=== PATIENT | female | born 1970 | race Caucasian/White ===

== ENCOUNTER 2024-03-19 12:39 | Emergency (ER) | payer BC, SELFPAY ==
[2024-03-19 12:54] VITALS: BP 137/76; PULSE 80; RESP 19; TEMP 36.8; O2SAT 95; BMI 31.4
--- NOTE | 2024-03-19 12:57 | XR_ITS ---
Examination: CT brain head without contrast. 2-D sagittal coronal reconstructions Date and time of exam:March 19, 2024 1307 hours INDICATIONS: Dizziness episodes with blurred vision today CTDI: vol (mGy):54.8 DLP: (mGycm):1089 Technique: Multiple CT axial sections of the brain have been obtained, 5 mm slice thickness. Contrast has not been administered. 2-D sagittal, coronal reconstructions have been obtained Low dose protocols were performed. One or more of the following dose reduction techniques were used; automated exposure control, adjustment of the mA and/or KV according to patient size, use of iterative reconstruction technique. Findings: No significant ventricular enlargement. Intra-axial or extra-axial hemorrhage density is not seen. No mass effect or midline shift Basal cisterns are not remarkable. Fourth ventricle is midline. Cranial vault intact. Impression: Negative for acute hemorrhage, mass effect or midline shift Advise clinical correlation and follow-up accordingly
--- NOTE | 2024-03-19 12:57 | PD.EDRME ---
Rapid Medical Screening Exam RME Arrival date/time: 03/19/24 12:39 54-year-old female with no known medical history presents to the emergency room with a chief complaint of dizziness lightheadedness and headache that has been going on for the last week but has progressively gotten worse the last 2 days. I have greeted and performed a focused initial assessment of this patient. A comprehensive ED assessment and evaluation of the patient, analysis of all test results, and completion of the medical decision making process will be conducted by additional ED providers. Chief Complaint: Shortness of Breath/Dyspnea Time Seen by Provider: 03/19/24 12:52 Vital signs reviewed by provider: Yes
[2024-03-19 13:54] LABS: Collection Type, Urine Clean Catch; WBC,Urine 0 /hpf (0-5)
[2024-03-19 13:56] LABS: Basophils % (Auto) 0 % (0-2.5); Eosinophils # (Auto) 0.3 Thou/mm3 (0.0-0.5); Eosinophils % (Auto) 4 % (0-10); Hematocrit 40.8 % (36.0-46.0); Hemoglobin 13.9 g/dL (12.0-16.0); Immature Granulocytes % (Auto) 0 % (0-0); Immature Granulocytes Auto 0.02 Thou/mm3 (0.00-0.00); Lymphocytes # (Auto) 2.6 Thou/mm3 (1.0-4.8); Lymphocytes % (Auto) 38 % (10-50); Mean Corpuscular HGB Conc 34.1 g/dl (31.0-37.0); Mean Corpuscular Hemoglobin 30.2 pg (25.0-35.0); Mean Corpuscular Volume 89 fL (80-100); Monocytes # (Auto) 0.7 Thou/mm3 (0.0-0.8); Monocytes % (Auto) 10 % (0-12); Neutrophils # (Auto) 3.3 Thou/mm3 (1.8-7.7); Neutrophils % (Auto) 48 % (37-80); Nucleated Red Blood Cell % 0 /100 WBC (0); Platelet Count 300 Thou/mm3 (140-440); RDW Standard Deviation 37.7 fL (36.4-46.3); White Blood Count 6.9 Thou/mm3 (3.6-11.0)
[2024-03-19] MEDS: MECLIZINE HCL 25 MG TABLET PO (13:57)
[2024-03-19 14:01] LABS: Bacteria,Urine Rare; Bilirubin,Urine Negative (Negative); Blood,Urine Negative (Negative); Clarity,Urine Clear (Clear/Hazy); Color,Urine Lt-Yellow (Lt Yel-Yel); Glucose, Urine Negative (Negative); Ketones,Urine Negative (Negative); Leukocyte Esterase,Urine Negative (Negative); Nitrite,Urine Negative (Negative); PH,Urine 6.5 (5.0-7.0); Protein,Urine Negative (Neg - Trace); RBC,Urine < 1 /hpf (0-3); Specific Gravity,Urine 1.006 (1.001-1.035); Squamous Epithelial Cell,Urine 1 /hpf (0-5); Urobilinogen,Urine Negative mg/dL (0.0-1.0)
[2024-03-19 14:30] LABS: Alanine Aminotransferase 52 U/L (10-49); Albumin/Globulin Ratio 1.8 (1.2-2.2); Alkaline Phosphatase 65 U/L (46-116); Anion Gap 9 (7-16); Aspartate Amino Transferase 35 U/L (0-34); BUN/Creatinine Ratio 15 Ratio (12-20); Bilirubin,Total 0.6 mg/dL (0.3-1.2); Blood Urea Nitrogen 17 mg/dL (9-23); Calcium 9.9 mg/dL (8.3-10.6); Calcium (Corrected) 9.9 mg/dL (8.5-10.1); Carbon Dioxide 29.5 mMol/L (20.0-31.0); Chloride 98 mMol/L (98-107); Creatinine (Component) 1.1 mg/dL (0.6-1.3); Estimated Creatinine Clearance 73.2 mL/min (>60); Globulin 2.8 gm/dL (2.3-3.5); Glucose 102 mg/dL (74-106); Osmolality,Calculated 273 (275-295); Potassium 4.3 mMol/L (3.4-5.1); Sodium 136 mMol/L (136-145); Total Protein 7.8 gm/dL (5.7-8.2); eGFR > 60 See Note
[2024-03-19 14:42] LABS: Troponin I < 0.002 ng/mL (0.0-0.045)
[2024-03-19 16:08] VITALS: BP 144/97; PULSE 78; RESP 18; TEMP 36.8; O2SAT 97
--- NOTE | 2024-03-19 16:09 | PD.EDHA ---
ED Headache RME/HPI General Chief Complaint: Shortness of Breath/Dyspnea Stated Complaint: SOB, DIZZINESS, HIGH BP, AMEZQUITA Time Seen by Provider: 03/19/24 12:52 Arrival date/time: 03/19/24 12:39 RME / HPI RME / HPI Narrative: 03/19/24 12:39 54-year-old female with no known medical history presents to the emergency room with a chief complaint of dizziness lightheadedness and headache that has been going on for the last week but has progressively gotten worse the last 2 days. I have greeted and performed a focused initial assessment of this patient. A comprehensive ED assessment and evaluation of the patient, analysis of all test results, and completion of the medical decision making process will be conducted by additional ED providers. DR. MATT WILLS ED EVALUATION 54 year old female with history of hypertension and s/p brain tumor resection in 2017 presents to the ED for evaluation of head pressure, mostly to the right side, beginning intermittently several months ago. Occurring more frequently in the last week. Accompanied by a light headed dizziness sensation beginning 1 week ago. States she also noted her blood pressure yesterday was 157/117 and heart rate 41 which concerned her. Denies fevers, chills, chest pain, cough, shortness of breath, abdominal pain, n/v/d, or urinary symptoms. Denies loss of sensation or movement. Related Data Allergies Allergy/AdvReac Type Severity Reaction Status Date / Time No Known Allergies Allergy Verified 03/19/24 12:43 Review of Systems Review of Systems Narrative Review of Systems: GEN: No fever, no chills, no weight loss EYES: No discharge, no visual changes, no pain HEENT: No ear pain, no congestion, no sore throat PULM: No shortness of breath, no cough, no congestion CV: No chest pain, no dyspnea on exertion, no palpitations GI: No nausea, no vomiting, no diarrhea, no pain, no constipation : No frequency, no urgency and no dysuria MUSC/SKEL No joint pain, no back pain SKIN: No rash NEURO: No weakness, + headache, +light headed/dizziness sensation Past Medical History Social History SMOKING STATUS: Never smoker ED Exam Narrative Physical exam: GENERAL APPEARANCE: Well hydrated, well nourished, in no acute distress. VITALS: All vitals were reviewed and the pulse ox is 95% on room air which is normal according to my interpretation. HEENT: Normocephalic, atramatic, EOMI, EACs are patent. There is no bulge or retraction. Throat without erythema or exudate. Moist oromucosa. No jaundice NECK: Supple, no JVD or bruits. CARDIOVASCULAR: Heart regular without S3-S4 or murmur. No rubs or gallops. LUNGS/CHEST: Clear to auscultation bilaterally. No rales, rhonchi, or wheezing. Normal inspection. ABDOMEN: Soft, nontender, with normal bowel sounds. No pulsatile masses. No rebound, rigidity, or guarding. No incarcerated hernia. Normal inspection and palpation. EXTREMITIES: Normal inspection and palpation. No edema, clubbing, or cyanosis. Intact CSM SKIN: Warm and dry without rashes. Normal inspection. MUSCULOSKELETAL: Normal inspection. No gross deformity, full ROM all extremities NEURO: Alert and oriented x3. Cranial nerves II through XII grossly intact. There are no other motor or sensory deficits noted. PSYCHIATRIC: Normal mood and affect. No psychosis Course Quality Measures none Orders Category Date Time Status EKG (ED ONLY) *Do not use* NOW Care 03/19/24 12:[address] head/brain wo con Stat Exams 03/19/24 12:57 Completed EKG (ED Only) Stat Exams 03/19/24 12:57 Ordered CBC Stat Lab 03/19/24 13:20 Completed Comprehensive Metabolic Panel Stat Lab 03/19/24 13:20 Completed Troponin I Stat Lab 03/19/24 13:20 Completed Urinalysis Stat Lab 03/19/24 13:48 Completed Urine Culture Stat Lab 03/19/24 13:48 Received Meclizine HCl [Antivert] Med 03/19/24 12:57 Discontinued 25 mg PO X1 ONE Vital Signs Vital signs: Vital Signs Temperature 98.2 F 03/19/24 12:54 Pulse Rate 80 03/19/24 12:54 Respiratory Rate 19 03/19/24 12:54 Blood Pressure 137/76 H 03/19/24 12:54 Pulse Oximetry (%) 95 03/19/24 12:54 Oxygen Delivery Method Room Air 03/19/24 12:54 Headache MDM Narrative MDM Narrative:: ITifafni, varsha scribing for and in the presence of Dr. Kennedy. CBC is negative. CMP negative. Troponin negative. UA is negative. CT head interpreted by me: No bleed. No mass. No shift. No swelling. Normal ventricle. Evidence of previous craniotomy noted on the left temporal area. Twelve-lead EKG at 1301 interpreted by me: Sinus rhythm. Heart rate of 82. Normal axis. No ST segment elevation. No ST segment depression. Unifocal PVC. No STEMI. Patient is walking talking well. No neurological deficits. Blood pressure is normal at 137/76. Pulse is normal at 80. Oxygen saturation is normal in room air. Patient data External records reviewed:: None Clinical information provided by:: patient Social determinants that could affect healthcare access:: none Patient has the following chronic illnesses:: hypertension and s/p brain tumor resection in 2017 How is presenting disease/condition affected by chronic disease/condition?: exacerbated by Evaluation data The following diagnostics were reviewed and interpreted by me:: lab results and radiology exam(s) Lab and/or radiology exams considered but not ordered:: None Interpretation Summary: Ordering Physician: Keyur Cordero Date of Service: 03/19/24 Procedure(s): CT head/brain wo con Accession Number(s): [id number] cc: Keyur Cordero; GEN JONES MD; Axel Melvin MD~ Examination: CT brain head without contrast. 2-D sagittal coronal reconstructions Date and time of exam:March 19, 2024 1307 hours INDICATIONS: Dizziness episodes with blurred vision today CTDI: vol (mGy):54.8 DLP: (mGycm):1089 Technique: Multiple CT axial sections of the brain have been obtained, 5 mm slice thickness. Contrast has not been administered. 2-D sagittal, coronal reconstructions have been obtained Low dose protocols were performed. One or more of the following dose reduction techniques were used; automated exposure control, adjustment of the mA and/or KV according to patient size, use of iterative reconstruction technique. Findings: No significant ventricular enlargement. Intra-axial or extra-axial hemorrhage density is not seen. No mass effect or midline shift Basal cisterns are not remarkable. Fourth ventricle is midline. Cranial vault intact. Impression: Negative for acute hemorrhage, mass effect or midline shift Advise clinical correlation and follow-up accordingly Dictated By: Axel Melvin MD Signed By: <Electronically signed by Axel Melvin MD in [place]> 03/19/24 1416 Medications / Prescriptions Medications or Prescriptions considered but not ordered:: None Medication administrations:: Medication Administration History Discontinued Medications Meclizine HCl (Meclizine Hcl 25 Mg Tablet) 25 mg PO X1 ONE Stop: 03/19/24 12:58 Last Admin: 03/19/24 13:57 Dose: 25 mg Documented By: KDC See above Consultations Consultation(s) initiated? (list below): No Diagnosis Differential diagnosis headache: migraine, tension headache, subarachnoid hemorrhage and headache Most likely diagnosis given after review of the tests above:: Anxiety Admission Indicated Admission indicated?: not indicated Admission Request Was there a request for admission?: No Disposition Plan Disposition Plan: Discharge Discharge Attestation Discharge Attestation: The patient and all family members were given an opportunity to ask questions and understood the discharge instructions. Discharge instructions specifically effects, indications for sooner follow up or return to the emergency department, and the expected course of current diagnosis. Patient condition: Stable Discharge Plan Plan Patient Disposition: HOME (Self Care) Disposition Comment: Stable to be DC home Prescriptions/Referrals Referrals: Gen Jones MD [Primary Care Provider] - In 1 week Problem List Clinical Impression: Anxiety Patient/Caregiver Discharge Instructions Education Materials: ED Anxiety Reaction Additional Instructions: Rest. Follow-up with your medical doctor next few days. Return the nearest emergency department if condition worsens or if new symptoms develop. If you feel dizzy, do not drive. Do not drive. No tereso. And no heavy equipments. Print Language: Monegasque Stand Alone Forms: Melissa Award Info., Patient Portal Info Letter
== END 2024-03-19 16:54 | disposition home or self-care (01) ==
PROVIDERS: Nurse Practitioner Family; Emergency Provider Emergency Medicine; PCP Family Medicine
DX: F41.9 Anxiety disorder, unspecified (principal); R42 Dizziness and giddiness; H53.8 Other visual disturbances; I10 Essential (primary) hypertension; I49.3 Ventricular premature depolarization
CPT/HCPCS: 36415; 70450; 80053; 81001; 84484; 85025; 87086; 93005; 99284; A9270